=== PATIENT | female | born 1955 | race African-American/Black ===

== ENCOUNTER → 2017-03-22 | Outpatient (CLI) | payer BC, OTHER ==
[~2017-03-22] MED LIST: ACTIVELLA 1.0-1 EACH PO; ALLEGRA180 MG PO; ATIVAN1 MG PO; BENICAR40 MG PO; CYMBALTA60 MG PO; DESYREL100 MG PO; ETODOLAC 400 M400 M1 PO; VITAMIN C100 M1 PO; VITAMIN D400 UNI1 PO; ZANAFLEX4 M1 PO
== END ==
LOC: RAD 09:44
DX: Z12.31 Encounter for screening mammogram for malignant neoplasm of breast (principal)

== ENCOUNTER → 2018-04-01 | Outpatient (CLI) | payer BC, OTHER | LOC: RAD 09:14 | DX: Z12.31 Encounter for screening mammogram for malignant neoplasm of breast (principal) ==

== ENCOUNTER → 2019-05-29 | Outpatient (CLI) | payer BC, OTHER | LOC: BC 08:56 | DX: Z12.31 Encounter for screening mammogram for malignant neoplasm of breast (principal) ==

== ENCOUNTER → 2020-07-31 | Outpatient (CLI) | payer BC, OTHER | LOC: BC 08:46 | PROVIDERS: ATTEND Obstetrics & Gynecology | DX: Z12.31 Encounter for screening mammogram for malignant neoplasm of breast (principal); N64.89 Other specified disorders of breast ==

== ENCOUNTER → 2021-01-16 | Outpatient (CLI) | payer BC, OTHER | LOC: BC 10:32 | PROVIDERS: ATTEND Obstetrics & Gynecology | DX: R92.2 Inconclusive mammogram (principal); R92.8 Other abnormal and inconclusive findings on diagnostic imaging of breast ==